=== PATIENT | female | born 1980 | race Caucasian/White ===

== ENCOUNTER 2016-11-11 16:53 | Emergency (ER) | payer MEDICAID ==
[2016-11-11 17:49] VITALS: BP 159/104
[2016-11-11] MEDS ORDERED: Ketorolac 60 MG/2 ML SDV IM ONE (18:30)
--- NOTE | 2016-11-11 18:30 | EDM.PDOC ---
ED HPI GENERAL MEDICAL PROBLEM - General Chief Complaint: General Stated Complaint: REACTION TO ABSCESS TOOTH? Time Seen by Provider: 11/11/16 18:10 Source of Information: Reports: Patient History Limitations: Reports: No Limitations - History of Present Illness INITIAL COMMENTS - FREE TEXT/NARRATIVE: Lala presents to the ER today with complaints of left upper jaw pain, palpitations and chest pain for 7 days. She was seen by [facility] night clinic 7 days ago and was given amoxicillin. Onset: Gradual Duration: Day(s): Location: Reports: Chest, Other (left upper jaw, neck pain) Quality: Reports: Ache, Dull Severity: Moderate Improves with: Reports: None Worsens with: Reports: Other (eating, drinking, activity. ) left upper jaw Pain Score (Numeric/FACES): 9 - Related Data Allergies Allergy/AdvReac Type Severity Reaction Status Date / Time codeine Allergy Nausea Verified 11/11/16 17:55 Home Meds: Home Meds Amoxicillin 1,000 mg PO BID 11/11/16 [History] Social & Family History - Tobacco Use Smoking Status *Q: Never Smoker Second Hand Smoke Exposure: No - Recreational Drug Use Recreational Drug Use: No ED ROS GENERAL - Review of Systems Review Of Systems: See Below Constitutional: Reports: Malaise. Denies: Fever, Chills, Weakness, Night Sweats , Diaphoresis HEENT: Reports: Dental Pain, Other (infected left upper molar. ). Denies: Ear Discharge, Ear Pain, Eye Discharge, Eye Pain, Hearing Loss, Sinus Problem, Throat Pain, Throat Swelling Respiratory: Denies: Shortness of Breath, Wheezing, Cough, Sputum Cardiovascular: Reports: Chest Pain, Dyspnea on Exertion, Palpitations. Denies : Blood Pressure Problem, Edema, Lightheadedness, PND, Syncope Endocrine: Reports: No Symptoms GI/Abdominal: Denies: Abdominal Pain, Anorexia, Constipation, Diarrhea, Flatus, Nausea, Vomiting : Reports: No Symptoms Musculoskeletal: Reports: Neck Pain, Other (Neck pain radiates from jaw and chest) Skin: Reports: No Symptoms Neurological: Denies: Confusion, Dizziness, Headache, Numbness, Tingling, Trouble Speaking, Difficulty Walking, Weakness, Gait Disturbance Psychiatric: Reports: No Symptoms Hematologic/Lymphatic: Reports: No Symptoms Immunologic: Reports: No Symptoms ED EXAM, GENERAL - Physical Exam Exam: See Below Free Text/Narrative:: Lala is an alert, oriented 36 year old female with complaints of left upper jaw pain radiating to her neck. She also complains of chest pain and palpitations intermittently the past 7 days. Exam Limited By: No Limitations General Appearance: Alert, WD/WN, No Apparent Distress Eye Exam: Bilateral Eye: EOMI, Normal Inspection Ears: Normal External Exam, Normal Canal, Hearing Grossly Normal, Normal TMs Ear Exam: Bilateral Ear: Auricle Normal, Canal Normal, TM normal Nose: Normal Inspection, Normal Mucosa, No Blood Throat/Mouth: Normal Gums, Normal Oropharynx, Normal Voice, No Airway Compromise , Other (left upper molar with extensive dental decay. ) Head: Atraumatic, Normocephalic Neck: Normal Inspection, Supple, Non-Tender, Full Range of Motion. No: Lymphadenopathy (R), Lymphadenopathy (L) Respiratory/Chest: No Respiratory Distress, Lungs Clear, Normal Breath Sounds, No Accessory Muscle Use, Chest Non-Tender Cardiovascular: Normal Peripheral Pulses, Regular Rate, Rhythm, No Edema, No Gallop, No Murmur, No Rub Peripheral Pulses: 2+: Radial (L), Radial (R), Dorsalis Pedis (L), Dorsalis Pedis (R) GI/Abdominal: Normal Bowel Sounds, Soft, Non-Tender, No Organomegaly, No Distention Back Exam: Normal Inspection, Full Range of Motion. No: CVA Tenderness (R), CVA Tenderness (L) Extremities: Normal Inspection, Normal Range of Motion, Non-Tender, No Pedal Edema, Normal Capillary Refill Neurological: Alert, Oriented, CN II-XII Intact, Normal Cognition, Normal Gait, No Motor/Sensory Deficits Psychiatric: Normal Affect, Normal Mood Skin Exam: Warm, Dry, Intact, Normal Color, No Rash Lymphatic: No Adenopathy EKG INTERPRETATION EKG Date: 11/11/16 Rhythm: NSR [place]: Normal P-Wave: Present QRS: Normal ST-T: Normal QT: Normal Course - Vital Signs Last Recorded V/S: Last Vital Signs Temp 36.2 C 11/11/16 17:47 Pulse 73 11/11/16 17:47 Resp 16 11/11/16 17:47 BP 159/104 H 11/11/16 17:47 Pulse Ox 100 11/11/16 17:47 - Orders/Labs/Meds Orders: Active Orders 24 hr Category Date Time Status EKG Documentation Completion [RC] ASDIRECTED Care 11/11/16 18:24 Active Chest 2V [CR] Stat Exams 11/11/16 19:02 Taken EKG 12 Lead [EK] Routine Ther 11/11/16 18:24 Ordered Labs: Laboratory Tests 11/11/16 11/11/16 Range/Units 18:39 18:39 WBC 6.4 (4.5-11.0) K/uL RBC 4.31 (3.30-5.50) M/uL Hgb 13.1 (12.0-15.0) g/dL Hct 38.9 (36.0-48.0) % MCV 90 (80-98) fL MCH 30 (27-31) pg MCHC 34 (32-36) % Plt Count 252 (150-400) K/uL Neut % (Auto) 52 (36-66) % Lymph % (Auto) 34 (24-44) % [place] % (Auto) 8 H (2-6) % Eos % (Auto) 3 (2-4) % Baso % (Auto) 3 H (0-1) % Sodium 140 (140-148) mmol/L Potassium 3.6 (3.6-5.2) mmol/L Chloride 105 (100-108) mmol/L Carbon Dioxide 28 (21-32) mmol/L Anion Gap 6.8 (5.0-14.0) mmol/L BUN 12 (7-18) mg/dL Creatinine 0.8 (0.6-1.0) mg/dL Est Cr Clr Drug Dosing 100.62 mL/min Estimated GFR (MDRD) > 60 (>60) Glucose 95 (74-106) mg/dL Calcium 8.9 (8.5-10.1) mg/dL Troponin I < 0.017 (0.000-0.056) ng/mL Lab work and chest x-ray reviewed with patient, all her questions answered. Meds: Medications Discontinued Medications Generic Name Dose Route Start Last Admin Trade Name Freq PRN Reason Stop Dose Admin Ketorolac Tromethamine 60 mg 11/11/16 18:30 11/11/16 18:41 Toradol IM 11/11/16 18:31 60 mg ONETIME ONE Administration - Re-Assessments/Exams Free Text/Narrative Re-Assessment/Exam: 11/11/16 19:27 Patient reports improvement with pain, no sensation of palpitations in ER, heart rate regular. 11/11/16 19:50 Departure - Departure Time of Disposition: 19:40 Disposition: Home, Self-Care 01 Condition: Good Clinical Impression: Abscess, dental - Discharge Information Referrals: PCP,None [Primary Care Provider] - Forms: ED Department Discharge Additional Instructions: You continue to have pain with your dental abscess as well as stress/anxiety related to your health care. All cardiac (heart) work-up was negative. Lab-work did not show any signs of worsening infection. You can take ibuprofen 800mg by mouth three times a day with food for pain. You can take tramadol 50mg , one tablet for breakthrough pain every 6 hours as needed (#10 tablets provided). Referral to the [facility] dental clinic sent for Sunday November 13, 2016. It is best for you to establish care with a primary provider in the area to assist with further management and general medical care. - My Orders Last 24 Hours: My Active Orders 11/11/16 18:24 EKG Documentation Completion [RC] ASDIRECTED EKG 12 Lead [EK] Routine 11/11/16 19:02 Chest 2V [CR] Stat - Assessment/Plan Last 24 Hours: My Active Orders 11/11/16 18:24 EKG Documentation Completion [RC] ASDIRECTED EKG 12 Lead [EK] Routine 11/11/16 19:02 Chest 2V [CR] Stat Assessment:: Dental abscess Anxiety Plan: Patient continues to have pain due to dental abscess as well as stress/anxiety related to health care. All cardiac (heart) work-up was negative. Lab-work did not show any signs of worsening infection. She can take ibuprofen 800mg by mouth three times a day with food for pain. She can take tramadol 50mg , one tablet for breakthrough pain every 6 hours as needed (#10 tablets provided). Referral to the [facility] dental clinic sent for Sunday November 13, 2016. It is best to establish care with a primary provider in the area to assist with further management and general medical care.
--- NOTE | 2016-11-12 10:03 | CR ---
Chest 2V HISTORY: No Clinical Info FINDINGS: Heart size within normal limits. Pulmonary vasculature within normal limits. No evidence f or focal consolidation or cardiopulmonary process. IMPRESSION: No radiographic evidence for acute cardiopulmonary process.
== END 2016-11-11 19:55 | disposition home or self-care (01) ==
LOC: JP.ED 16:53
DX: K04.7 Periapical abscess without sinus (principal); Z88.5 Allergy status to narcotic agent
CPT/HCPCS: 36415; 71020; 80048; 84484; 85025; 93005; 96372; 99283; 99284; J1885; 93010